=== PATIENT | female | born 1970 | race Asian ===

== ENCOUNTER 2017-08-10 08:43 | Emergency (ER) | payer OTHER ==
[~2017-08-10] VITALS: Ht 162.6 cm; Wt 81.6 kg
[2017-08-10 08:43] VITALS: BP_SYST 152
--- NOTE | 2017-08-10 08:43 | NUR ---
Assisted out of car with w/c. Patient to ER bed 08 to gown for evaluation. Side rails up. Report given to LUKAS Gomez.
--- NOTE | 2017-08-10 08:45 | NUR ---
Pt complains of pain from left thigh down to left foot since today. Pt states she has had this feeling for a couple months but has gotten worse. Pt denies N/V. Pt was having hard time ambulating and was wheeled into ER. Daughter at bedside. No other injuries/complaints per patient or noted.
--- NOTE | 2017-08-10 08:57 | NUR ---
Dr. Santioz at bedside for evaluation
--- NOTE | 2017-08-10 09:25 | NUR ---
Pt was wheeled to radiology in stable condition.
[2017-08-10 09:26] LABS: BILIRUBIN,URINE NEGATIVE (NEGATIVE); BLOOD, URINE NEGATIVE (NEGATIVE); CLARITY/URINE SL HAZY (CLEAR); COLOR,URINE YELLOW (YELLOW); GLUCOSE,URINE NEGATIVE (NEGATIVE); KETONES,URINE NEGATIVE (NEGATIVE); LEUKOCYTE ESTERASE ,URINE 1+ (NEGATIVE); NITRITE, URINE NEGATIVE (NEGATIVE); PROTEIN URINE NEGATIVE (NEGATIVE); UROBILINOGEN,URINE 0.2 (0.2-1.0)
--- NOTE | 2017-08-10 09:37 | NUR ---
Pt returned from radiology in stable condition.
[2017-08-10] MEDS: ONDANSETRON 4 MG ODT TAB PO ONE (09:38)
[2017-08-10] MEDS: KETOROLAC TROMETHAMINE 60 MG/2 ML VIAL IM ONE (09:39)
[2017-08-10] MEDS: MORPHINE SULFATE 10 MG/ML VIAL IM ONE (09:40)
[2017-08-10 09:47] LABS: BACTERIA,URINE MODERATE /HPF (None Seen); RBC,URINE 0-3 /HPF (0-3)
[2017-08-10 10:43] VITALS: BP_SYST 127
--- NOTE | 2017-08-10 10:43 | NUR ---
Patient given written and verbal discharge instructions and verbalizes understanding. ER MD discussed with patient the results and treatment provided. Patient in stable condition. ID arm band removed. Rx of soma, tramadol, motrin, cipro given. Patient educated on pain management and to follow up with PMD. Pain Scale 3/10. Opportunity for questions provided and answered. Pt refused wheelchair, able to ambulate with steady gait.
== END 2017-08-10 10:43 | disposition home or self-care (01) ==
LOC: SED 08:43
DX: M54.32 Sciatica, left side (principal)
CPT/HCPCS: 72110; 72170; 81000; 81025; 87086; 96372; 99285; J1885; J2270; Q0162

== ENCOUNTER 2024-05-11 18:26 | Inpatient (IN) | payer BC, OTHER ==
[~2024-05-11] VITALS: Ht 160 cm; Wt 70.8 kg
[2024-05-11 18:32] VITALS: BP_SYST 132; PULSE 121; RESP 18; TEMP 101.2; O2SAT 95
[2024-05-11 19:39] LABS: BASOPHILS % (AUTO) 0.7 % (0.0-2.0); EOSINOPHILS % (AUTO) 0.1 % (0.0-4.0); HEMATOCRIT 41.6 % (36-48); HEMOGLOBIN 14.5 g/dL (12.0-16.0); LYMPHOCYTES # (AUTO) 0.3 K/uL (1.0-5.5); LYMPHOCYTES % (AUTO) 4.7 % (20.5-51.5); MEAN CORPUSCULAR HEMOGLOBIN 29 pg (27-31); MEAN CORPUSCULAR HGB CONC 35 % (32-36); MEAN CORPUSCULAR VOLUME 84 fL (79.0-98.0); MONOCYTES # (AUTO) 0.2 K/uL (0.0-1.0); MONOCYTES % (AUTO) 3.5 % (1.7-9.3); NEUTROPHILS # (AUTO) 5.8 K/uL (1.8-7.7); PLATELET COUNT (AUTO) 154 K/uL (130-430); RED BLOOD CELL COUNT(AUTO) 4.97 MIL/uL (4.2-6.2); RED CELL DISTRIBUTION WIDTH 13.6 % (9.0-15.0); WHITE BLOOD COUNT (AUTO) 6.4 K/uL (4.8-10.8)
[2024-05-11 19:42] LABS: INR 1.1 (0.8-1.2)
[2024-05-11] MEDS: NACL 0.9% 1,000 ML IV ONE ×2 (19:48→21:27)
[2024-05-11] MEDS: ONDANSETRON HCL 4 MG/2 ML VIAL IVP ONE (19:49)
[2024-05-11 19:55] LABS: ALANINE AMINOTRANSFERASE 24 U/L (12-78); ALBUMIN 3.6 g/dL (3.4-4.8); ANION GAP 11 (5-15); ASPARTATE AMINOTRANSFERASE 25 U/L (10-37); BILIRUBIN,DIRECT 0.3 mg/dL (0.0-0.3); CARBON DIOXIDE 23 mmol/L (23-29); CHLORIDE 103 mmol/L (98-107); CREATININE 1.07 mg/dL (0.55-1.30); GFR AFRICAN AMERICAN 70 mL/min (>90); GLUCOSE 183 mg/dL (74-106); SODIUM SERUM 137 mmol/L (136-145); TOTAL BILIRUBIN 1.2 mg/dL (0.0-1.0); TOTAL PROTEIN, SERUM 7.4 g/dL (6.4-8.3); UREA NITROGEN, BLOOD 16 mg/dL (8-21)
[2024-05-11 20:02] LABS: GFR NON AFRICAN-AMERICAN 57 mL/min (>90)
[2024-05-11] MEDS ORDERED: ACETAMINOPHEN 325 MG TABLET PO PRN (20:30)
[2024-05-11] MEDS ORDERED: AZITHROMYCIN 500 MG/VIAL (ZITHROMAX) IV ONE (21:03)
[2024-05-11] MEDS ORDERED: cefTRIAXone 1 GM VIAL ONE (21:03)
[2024-05-11] MEDS: cefTRIAXone 1 GM in D5W 50 ML IV ONE (21:26)
[2024-05-11] MEDS: POTASSIUM CHLORIDE 20 MEQ/PKT PACKET PO ONE (21:26)
[2024-05-11] MEDS: ASPIRIN 81 MG TABLET(ECOTRIN) PO ONE (21:26)
[2024-05-11 21:50] LABS: BILIRUBIN,URINE NEGATIVE (NEGATIVE); BLOOD, URINE 1+ (NEGATIVE); CLARITY/URINE HAZY (CLEAR); COLOR,URINE YELLOW (YELLOW); GLUCOSE,URINE NEGATIVE (NEGATIVE); KETONES,URINE 1+ (NEGATIVE); LEUKOCYTE ESTERASE ,URINE 3+ (NEGATIVE); NITRITE, URINE POSITIVE (NEGATIVE); PH,URINE 6.5 (5.0-8.0); PROTEIN URINE NEGATIVE (NEGATIVE); UROBILINOGEN,URINE 0.2 (0.2-1.0)
[2024-05-11] MEDS: AZITHROMYCIN 500 MG in NS 250 ML IV ONE (21:50)
[2024-05-11 22:09] LABS: BACTERIA,URINE MANY /HPF (None Seen); WBC,URINE 20-50 /HPF (0-3)
[2024-05-11 23:41] VITALS: BP_SYST 113; PULSE 79; RESP 18; TEMP 98.1
[2024-05-12] VITALS (7 sets, daily range): BP systolic 121–144; PULSE 66–72; RESP 15–20; TEMP 97.8–99.1; O2SAT 97–98
[2024-05-12] MEDS ORDERED: ONDANSETRON HCL 4 MG/2 ML VIAL IVP PRN (00:30)
[2024-05-12] MEDS: NACL 0.9% 1,000 ML IV ONE (00:37)
[2024-05-12 07:55] LABS: BASOPHILS % (AUTO) 0.4 % (0.0-2.0); EOSINOPHILS % (AUTO) 0.1 % (0.0-4.0); HEMATOCRIT 39.4 % (36-48); LYMPHOCYTES # (AUTO) 0.6 K/uL (1.0-5.5); MEAN CORPUSCULAR HEMOGLOBIN 29 pg (27-31); MEAN CORPUSCULAR HGB CONC 33 % (32-36); MEAN CORPUSCULAR VOLUME 86 fL (79.0-98.0); MONOCYTES # (AUTO) 0.3 K/uL (0.0-1.0); MONOCYTES % (AUTO) 4.9 % (1.7-9.3); NEUTROPHILS % (AUTO) 84.6 % (40.0-70.0); PLATELET COUNT (AUTO) 137 K/uL (130-430); RED BLOOD CELL COUNT(AUTO) 4.57 MIL/uL (4.2-6.2); RED CELL DISTRIBUTION WIDTH 13.9 % (9.0-15.0); WHITE BLOOD COUNT (AUTO) 5.9 K/uL (4.8-10.8)
[2024-05-12 08:22] LABS: ALBUMIN 2.9 g/dL (3.4-4.8); CALCIUM 8.3 mg/dL (8.4-11.0); CREATININE 0.81 mg/dL (0.55-1.30); POTASSIUM 3.2 mmol/L (3.5-5.1); TOTAL BILIRUBIN 0.5 mg/dL (0.0-1.0); TOTAL PROTEIN, SERUM 6.2 g/dL (6.4-8.3)
[2024-05-12] MEDS ORDERED: KCL 20 mEq in 100 mL (PREMIX) 100 ML IV ONE (11:45)
[2024-05-12] MEDS: cefTRIAXone 1 GM in D5W 50 ML IV SCH (11:50)
[2024-05-12] MEDS: POTASSIUM CHLORIDE 20 MEQ/PKT PACKET PO ONE ×2 (11:59→13:26)
[2024-05-12 13:16] LABS: CHOLESTEROL 115 mg/dL (<200); HDL CHOLESTEROL 44 mg/dL (>55); TRIGLYCERIDES 43 mg/dL (30-150)
[2024-05-13 00:01] VITALS: BP_SYST 134; PULSE 68; RESP 17; TEMP 98.2
[2024-05-13 08:00] VITALS: BP_SYST 135; PULSE 60; RESP 16; TEMP 98.1; O2SAT 99
[2024-05-13 08:10] VITALS: O2SAT 99
[2024-05-13 08:45] LABS: BASOPHILS % (AUTO) 1.3 % (0.0-2.0); EOSINOPHILS # (AUTO) 0.1 K/uL (0.0-0.4); EOSINOPHILS % (AUTO) 3.5 % (0.0-4.0); HEMATOCRIT 44.3 % (36-48); HEMOGLOBIN 14.7 g/dL (12.0-16.0); LYMPHOCYTES # (AUTO) 0.9 K/uL (1.0-5.5); LYMPHOCYTES % (AUTO) 29.3 % (20.5-51.5); MEAN CORPUSCULAR HEMOGLOBIN 29 pg (27-31); MEAN CORPUSCULAR HGB CONC 33 % (32-36); MEAN CORPUSCULAR VOLUME 86 fL (79.0-98.0); MONOCYTES # (AUTO) 0.3 K/uL (0.0-1.0); MONOCYTES % (AUTO) 10.7 % (1.7-9.3); NEUTROPHILS # (AUTO) 1.8 K/uL (1.8-7.7); NEUTROPHILS % (AUTO) 55.2 % (40.0-70.0); PLATELET COUNT (AUTO) 153 K/uL (130-430); RED BLOOD CELL COUNT(AUTO) 5.15 MIL/uL (4.2-6.2); WHITE BLOOD COUNT (AUTO) 3.2 K/uL (4.8-10.8)
[2024-05-13 08:54] LABS: CALCIUM 8.7 mg/dL (8.4-11.0); CREATININE 0.68 mg/dL (0.55-1.30); POTASSIUM 3.7 mmol/L (3.5-5.1)
[2024-05-13] MEDS ORDERED: HYDROcodone/ACETAMIN 5-325 MG TAB (NORCO/ VICODIN) PO PRN (09:00)
[2024-05-13] MEDS ORDERED: ONDANSETRON HCL 4 MG/2 ML VIAL IVP PRN (09:00)
[2024-05-13] MEDS ORDERED: HYDROcodone/ACETAMIN 10-325 MG TAB PO PRN (09:00)
[2024-05-13] MEDS ORDERED: ACETAMINOPHEN 325 MG TABLET PO PRN ×2 (09:00→09:30)
[2024-05-13 12:05] VITALS: BP_SYST 129; PULSE 71; RESP 18; TEMP 97.7; O2SAT 98
[2024-05-13 12:48] VITALS: BP_SYST 129; PULSE 71; RESP 18; TEMP 97.7; O2SAT 98
[2024-05-13] MEDS ORDERED: CEPH250C PO (13:12)
== END 2024-05-13 15:50 | disposition home or self-care (01) | DRG 871 ==
LOC: SED 18:26 → STU 20:51
PROVIDERS: ADMIT Student in an Organized Health Care Education/Training Program; ATTEND Student in an Organized Health Care Education/Training Program
DX: A41.9 Sepsis, unspecified organism (principal); I21.4 Non-ST elevation (NSTEMI) myocardial infarction; N39.0 Urinary tract infection, site not specified; E87.6 Hypokalemia; R73.9 Hyperglycemia, unspecified; Z90.49 Acquired absence of other specified parts of digestive tract
CPT/HCPCS: 36415; 71045; 80048; 80053; 80061; 80076; 81000; 81001; 81015; 83037; 83605; 84484; 85025; 85610; 85730; 87040; 87086; 87186; 93005; 93306; 99285; G0378; J0456; J0696; J2405; J7050; J7060